=== PATIENT | male | born 1995 | race Caucasian/White ===

== ENCOUNTER 2017-01-25 22:39 | Emergency (ER) | payer SELFPAY ==
[~2017-01-25] VITALS: Ht 162.6 cm; Wt 64.0 kg
[2017-01-25 23:21] VITALS: BP 97/56
== END 2017-01-26 01:00 | disposition left against medical advice (07) ==
LOC: ER 22:39
DX: R10.9 Unspecified abdominal pain (principal); Z53.21 Procedure and treatment not carried out due to patient leaving prior to being seen by health care provider